=== PATIENT | male | born 1980 | race Asian ===

== ENCOUNTER 2021-01-24 09:52 | Outpatient (REF) | payer OTHER, SELFPAY ==
[2021-01-24 11:24] LABS: MANUAL DIFF FLAG NO
[2021-01-24 11:40] LABS: Basophils Percent Auto 0.6 % (0-2); Eosinophils Absolute Auto 0.3 X10*3/uL (0.0-0.4); Hematocrit 49.1 % (42-52); Hemoglobin 16.1 g/dl (14.0-18.0); Imm Gran Abs Auto 0.02 X10*3/uL (0.00-0.03); Imm Gran Pct Auto 0.4 % (0.0-0.4); Lymphocytes Absolute Auto 1.9 X10*3/uL (1.2-4.9); Lymphocytes Percent Auto 37.8 % (20-40); Mean Corpuscular HGB Conc 32.8 g/dl (31.0-36.0); Mean Corpuscular Hemoglobin 27.1 pg (27.0-33.0); Mean Corpuscular Volume 82.5 fL (80-98); Mean Platelet Volume 9.8 fL (9.4-12.4); Monocytes Absolute Auto 0.4 X10*3/uL (0.1-1.2); Monocytes Percent Auto 7.8 % (2-11); Neutrophils Absolute Auto 2.4 X10*3/uL (2.0-8.3); Neutrophils Percent Auto 48.4 % (45-73); Platelet Count 218 X10*3/uL (160-400); Red Blood Count 5.95 X10*6/uL (4.60-5.80); Red Cell Distribution Width 12.8 % (11.0-16.0)
[2021-01-24 11:46] LABS: Alanine Aminotransferase 17 U/L (0-40); Albumin Level 4.5 g/dL (3.5-5.0); Alkaline Phosphatase 101 U/L (39-117); Anion Gap 11 (12-20); Aspartate Amino Transferase 16 U/L (5-37); Bilirubin Total 0.8 mg/dL (0.0-1.0); Blood Urea Nitrogen 14 mg/dL (9-16); Calcium 9.8 mg/dL (8.4-10.2); Carbon Dioxide 28 mmol/L (22-29); Chloride 108 mmol/L (96-108); Estimated Glomerular Filt Rate > 60; Glucose Random 91 mg/dL (60-115); Potassium 4.8 mmol/L (3.3-5.1); Sodium 142 mmol/L (135-145); Total Protein 7.1 g/dL (6.5-8.0)
== END 2021-01-24 09:53 | disposition home or self-care (01) ==
LOC: HO.HMGCLDS 09:52
PROVIDERS: PCP Student in an Organized Health Care Education/Training Program; Visit Provider Internal Medicine
DX: Z01.818 Encounter for other preprocedural examination (principal)
CPT/HCPCS: 36415; 80053; 85025

== ENCOUNTER 2021-02-14 11:00 | Outpatient (RCR) | payer OTHER, SELFPAY ==
--- NOTE | 2021-02-11 15:20 | MHC.PT.EP ---
[facility] [place] [facility] [place] [facility] [place] [facility] [address] [phone] F: [phone] F: [phone] F: [phone] F: [phone] Physical Therapy Plan of Care Date of Evaluation: Date of Surgery: January 28 2021 Diagnosis: bilateral knee scope arthroscopic Assessment: Pt arrived s/p bilateral arthroscopic knee surgery 2 weeks ago. He has pain and swelling in bilateral knees, and very little pain. The pain he does experience occurs at night likely due to the stretch on the posterior knee joint. He has bilateral knee flexion contracture right greater than left. and reduced eccentric strength. He has significantly decreased ankle DF, and reduced pelvic stability. He had an anterior innominant in his pelvis which is likely a result of his lack of knee extension in his right knee causing a leg length discrepancy. He will be an excellent candidate to reduce impairments, build strength and activity tolerance to allow the patient to reach his personal activity goals. Frequency and Duration: The patient will be seen 2x/week x 4 weeks Short Term Goals: 1. Pt to be able to have functional control of a 4 inch step for going down stair eccentrically. 2. Pt to be able to increase ankle DF by 5 degrees PROM to improve available ankle ROM Prison Goals: 1.Pt to be able to have improved ankle DF AROM by at least 5 degrees for improved toe clearance 2. pt to be able to eccentrically control 6 inch step for curb height community obstacles. 3. Pt to be able to return to lateral movement and sport simulated tasks to allow the patient to return to soccer. 4. Pt to be able to return to running, and light jumping as necessary to return to soccer. Treatment Plan: Modalities to reduce pain, spasms and effusion. Manual therapy to restore motion and function. Therapeutic exercise to improve strength and flexibility. Neuromuscular re-education for posture and balance. Therapeutic activities to return to functional activities of daily living. Electronically signed by: Karissa Vazquez PT DPT Please sign and return to therapist. Thank you for your referral.
== END 2021-07-15 09:57 | disposition home or self-care (01) ==
LOC: HO.PT 11:00
PROVIDERS: Visit Provider Internal Medicine
DX: Z98.890 Other specified postprocedural states (principal)
CPT/HCPCS: 97110; 97140; 97162